=== PATIENT | female | born 2000 | race Two or more races ===

== ENCOUNTER 2023-05-20 09:29 | Emergency (ER) | payer MEDICAID, OTHER ==
[~2023-05-20] VITALS: Ht 170.2 cm; Wt 81.5 kg
[2023-05-20] MEDS ORDERED: MECLIZINE HCL 25 MG TAB PO ONE (16:30)
[2023-05-20 16:54] VITALS: BP 152/85; PULSE 90; RESP 17; O2SAT 95
[2023-05-20] MEDS ORDERED: MECL1TAB42 PO (20:29)
== END 2023-05-20 20:37 | disposition home or self-care (01) ==
LOC: ER 09:29
DX: H81.12 Benign paroxysmal vertigo, left ear (principal)
CPT/HCPCS: 99282; J8597